=== PATIENT | female | born 1980 ===

== ENCOUNTER 2017-06-20 13:07 | Emergency (ER) | payer OTHER ==
[2017-06-20 13:17] VITALS: BP 138/78
--- NOTE | 2017-06-20 14:34 | UC ---
Otto Klein Benjamin, scribed for Bert Perdomo MD on 06/20/17 at 1423 . Dizzy HPI HPI Summary: 36yo female c/o dizziness and bilateral ear issues for 2-3 weeks. Pt states that her hearing has been nuffled and then at times louder than normal, and room spinning like dizziness that worsens with head movement. Dizziness also made her nauseous today. Pt denies any visual changes, numbness/tingling anywhere or changes in her appetite. Pt gets nasal congestion in the morning, but denies any sinus pressure or post nasal drip. Pt flushed only her left ear, and reports hearing issues have resolved on the left. Pt drinks and smokes, and FHx of CAD and breast CA. The patient came in today specifically because when she was turning her head side to side talking to two different people each on one side of her she began to get vertigo feeling, and nauseated. She states that now she is hungry and wants to eat. She has mirena and does not think she is . - History Of Current Complaint Chief Complaint: UCDizziness Stated Complaint: PLUGGED EARS, DIZZY Time Seen by Provider: 06/20/17 13:45 Hx Obtained From: Patient Hx Last Menstrual Period: mirana Onset/Duration: Gradual Onset, Lasting Weeks - 2-3 weeks, Still Present Timing: Intermittent Episode Lasting Severity Initially: Moderate Severity Currently: Moderate Pain Intensity: 5 Pain Scale Used: 0-10 Numeric Character: Room Spinning Aggravating Factor(s): Change In Head Position Alleviating Factor(s): Nothing Associated Signs And Symptoms: Positive: Nausea. Negative: Chest Pain, SOB, Visual Changes, Decreased Oral Intake - Allergies/Home Medications Allergies/Adverse Reactions: Allergies Allergy/AdvReac Type Severity Reaction Status Date / Time Sulfa Antibiotics Allergy Hives Verified 06/20/17 13:17 Home Medications: Home Medications Multiple Vitamins W/ Minerals [Multivitamin Women] 1 tab PO 06/20/17 [History] PMH/Surg Hx/FS Hx/Imm Hx Previously Healthy: Yes - Surgical History Surgical History: None - Family History Known Family History: Positive: Cardiac Disease, Other - breast CA - Social History Occupation: Employed Full-time Alcohol Use: Occasionally Substance Use Type: None Smoking Status (MU): Heavy Every Day Tobacco Smoker Type: Cigarettes Review of Systems Constitutional: Negative Skin: Negative Eyes: Negative ENT: Ear Ache - bilateral, Other - nasal congestion Respiratory: Negative Cardiovascular: Negative Gastrointestinal: Nausea Genitourinary: Negative Motor: Negative Neurovascular: Negative Musculoskeletal: Negative Neurological: Other - dizziness Psychological: Negative All Other Systems Reviewed And Are Negative: Yes Physical Exam Triage Information Reviewed: Yes Vital Signs: Initial Vital Signs Temp 98.8 F 06/20/17 13:12 Pulse 84 06/20/17 13:12 Resp 18 06/20/17 13:12 BP 138/78 06/20/17 13:12 Pulse Ox 100 06/20/17 13:12 Vital Signs Reviewed: Yes ENT Exam: Normal ENT: Negative: TMs normal - cerumen impaction right ear, left TM clear without abnormality, there is some residual wax in left ear. Neck: Positive: Nontender Respiratory: Positive: Lungs clear, Normal breath sounds Cardiovascular: Positive: RRR, No Murmur Abdomen Description: Positive: Nontender Musculoskeletal: Positive: Strength Intact, ROM Intact Neurological: Positive: Alert, Muscle Tone Normal, Other: - cn 2-12 grossly intact, Strength 5/5 throughout, sensory grossly intact throughout, gait steady. Finger to nose smooth. Psychological: Positive: Normal Response To Family, Age Appropriate Behavior Skin Exam: Normal Diagnostics - EKG Cardiac Rate: NL Cardiac Rhythm: Sinus: Normal - EKG at 1330. Normal sinus rhythm, 68bpm. normal TN, QRS, and QT. Dizzy Course/Dx - Course Course Of Treatment: Reviewed pts medication and allergy lists. High Blood pressure noted. She has cerumen in right ear, and likely the cause of stimulus on right ear drum. She will be referred to ENT. Debrox ear drops recommended. Meclizine script given. - Differential Dx/Diagnosis Provider Diagnoses: vertigo. cerumen impaction Discharge - Discharge Plan Condition: Good Disposition: HOME Prescriptions: Meclizine HCl [Meclizine 25] 25 mg PO BID #10 tab Patient Education Materials: Cerumen Impaction (ED), Vertigo (ED) Referrals: No Primary Care Phys,NOPCP [Primary Care Provider] - Ramos De Jesus MD [Medical Doctor] - 2 Days Additional Instructions: use debrox ear drops as directed. follow up with ENT as soon as possible The documentation as recorded by the Otto irizarry Benjamin accurately reflects the service I personally performed and the decisions made by me, Bert Perdomo MD.
== END 2017-06-20 14:44 | disposition home or self-care (01) ==
LOC: UCEAST 13:07
DX: R42 Dizziness and giddiness (principal); H61.21 Impacted cerumen, right ear; Z32.02 Encounter for pregnancy test, result negative; Z72.0 Tobacco use
CPT/HCPCS: 84702; 93005; 99202; G0463